=== PATIENT | female | born 1980 | race Caucasian/White ===

== ENCOUNTER 2022-04-04 11:42 | Outpatient (CLI) | payer BC | END 2022-04-04 11:43 | disposition home or self-care (01) | LOC: CSHMAMMO 11:42 | PROVIDERS: ATTEND Nurse Practitioner Family | DX: Z12.31 Encounter for screening mammogram for malignant neoplasm of breast (principal); Z80.3 Family history of malignant neoplasm of breast | CPT/HCPCS: 77063; 77067 ==

== ENCOUNTER 2024-05-10 08:32 | Day surgery (SDC) | payer BC ==
[2024-05-07 15:13] VITALS: BMI 44.9
[2024-05-10] MEDS ORDERED: Rocuronium Bromide 10 MG/ML (10ML VIAL) ONE ×2 (09:18→09:54)
[2024-05-10] MEDS ORDERED: PROPOFOL 20 ML ONE (09:18)
[2024-05-10] MEDS ORDERED: Bupivacaine/Epinephrine 0.25% 30 ML VIAL ONE (09:37)
[2024-05-10] MEDS ORDERED: Bupivacaine HCl 0.5%/Epinephrine 1:200,000/PF 30 ml Vial ONE (09:47)
[2024-05-10] MEDS ORDERED: CEFAZOLIN 2 GM VIAL ONE (09:50)
[2024-05-10] MEDS ORDERED: Midazolam HCl 2 mg/2 ml Vial ONE (09:52)
[2024-05-10] MEDS ORDERED: fentaNYL 50 mcg/mL 1 mL Vial ONE ×3 (09:54→11:26)
[2024-05-10] MEDS ORDERED: diphenhydrAMINE 50 MG/ML VIAL ONE (09:54)
[2024-05-10] MEDS ORDERED: Dexamethasone 20 MG/5 ML VIAL ONE (09:54)
[2024-05-10] MEDS ORDERED: Metoclopramide HCl 10 MG (2 mL) VIAL ONE (09:54)
[2024-05-10] MEDS ORDERED: Ondansetron PF 4 MG/2 ML Vial ONE (09:54)
[2024-05-10] MEDS ORDERED: SUGAMMADEX SODIUM 200 MG/2 ML VIAL ONE ×2 (10:31→10:42)
[2024-05-10] MEDS ORDERED: Ketorolac Tromethamine 30 MG (1 mL) VIAL ONE (10:47)
[2024-05-10] MEDS ORDERED: Acetaminophen 500 MG TAB ONE (11:58)
== END 2024-05-10 12:30 | disposition home or self-care (01) ==
LOC: CSHSDC 08:32
PROVIDERS: ATTEND Surgery
PROC: 0FT44ZZ Resection of Gallbladder, Percutaneous Endoscopic Approach (ICD-10-PCS; principal; 2024-05-10)
DX: K80.10 Calculus of gallbladder with chronic cholecystitis without obstruction (principal); G43.909 Migraine, unspecified, not intractable, without status migrainosus; E28.2 Polycystic ovarian syndrome; K82.8 Other specified diseases of gallbladder; E66.9 Obesity, unspecified; Z68.42 Body mass index [BMI] 45.0-49.9, adult; Z98.890 Other specified postprocedural states; Z79.899 Other long term (current) drug therapy; Z88.5 Allergy status to narcotic agent; Z88.1 Allergy status to other antibiotic agents
CPT/HCPCS: 88304; C1889; J1100; J1200; J1885; J2250; J2405; J2704; J2765; J3010